=== PATIENT | male | born 1965 | race Caucasian/White ===

== ENCOUNTER 2020-08-23 07:25 | Emergency (ER) | payer SELFPAY ==
[2020-08-23] MEDS ORDERED: Sodium Chloride 0.9% 2.5 ML Syringe FLUSH PRN (07:50)
[2020-08-23] MEDS ORDERED: Lactated Ringers 1,000 ML IV ONE ×2 (07:50→08:22)
[2020-08-23] MEDS ORDERED: Sodium Chloride 0.9% 10 ML Syringe FLUSH PRN (07:50)
[2020-08-23] MEDS ORDERED: Ketorolac 15 MG/ML SDV IVPUSH ONE (07:50)
--- NOTE | 2020-08-23 07:59 | EDM.PDOC ---
ED HPI GENERAL MEDICAL PROBLEM - General Chief Complaint: Abdominal Pain Stated Complaint: RIGHT SIDE PAIN, THINKS APPENDICITIS Time Seen by Provider: 08/23/20 07:50 - History of Present Illness INITIAL COMMENTS - FREE TEXT/NARRATIVE: CHIEF COMPLAINT(S): Abdominal pain HISTORY OF PRESENT ILLNESS: This is a 55-year-old man with a past medical history of prostate cancer in the past status post surgery who comes to the emergency department with a chief complaint of abdominal pain. The patient states that for approximately 1 day now he has been experiencing pain just below his bellybutton which she describes as sharp, 5-8 out of 10, intermittent pain. He denies any radiation of the pain but states that when he has any increased abdominal pressure like when he is trying to have a bowel movement or urinate the pain just below his bellybutton is worse. He denies any nausea or vomiting but states that his stool is soft. He denies any melena, hematochezia, hematemesis or bilious emesis. He states that he tried Tylenol without any relief. States he also has some associated chills but denies any fever, weight loss. Denies any history of aortic aneurysm. States that he is not having trouble urinating or having a bowel movement. He denies any back pain. REVIEW OF SYSTEMS: Constitutional: Positive for chills denies fever Eyes: Denies eye pain Ears, Nose, Mouth, & Throat: Denies earache Cardiovascular: Denies chest pain Respiratory: Denies shortness of breath Gastrointestinal: Positive for lower quadrant abdominal pain and soft stools. Denies melena, hematochezia, hematemesis, bilious emesis, vomiting Genitourinary: Denies hematuria, dysuria Skin:Denies a rash Neurological: Denies blurred vision Psychiatric: Denies depression PAST MEDICAL HISTORY: As per history of present illness and as reviewed below otherwise noncontributory. SURGICAL HISTORY: As per history of present illness and as reviewed below otherwise noncontributory. SOCIAL HISTORY: As per history of present illness and as reviewed below otherwise noncontributory. FAMILY HISTORY: As per history of present illness and as reviewed below otherwise noncontributory. EXAMINATION OF ORGAN SYSTEMS/BODY AREAS: Constitutional: Blood pressure was 164/92, heart rate 112, respiratory rate 16 with an oxygen saturation 95% on room air. Temperature 36.0 General: Overall well-appearing man who is in no acute distress. Psychiatric: Appropriate mood and affect. Eyes: No scleral icterus or conjunctival erythema ENMT: Moist mucous membranes. No pharyngeal erythema Cardiovascular: Regular, rate, and rythym. No gallops, murmurs, or rubs. Bilateral upper extremity pulses symmetric and intact. No peripheral edema. No JVD. Respiratory: Lungs clear to auscultation bilaterally. No wheezes, rales, or rhonchi. Gastrointestinal: Soft, nondistended, moderate tenderness in the right lower quadrant, left lower quadrant, and suprapubic region with guarding. The rest of the abdomen is soft without any guarding. No rebound. Normal bowel sounds. Genitourinary: Suprapubic tenderness with guarding. No CVA tenderness. Musculoskeletal: Normal range of motion. Skin: No lesions or abrasions. Neurological: Alert, GCS 15 MEDICAL DECISION MAKING AND COURSE IN THE ED WITH INTERPRETATION/REVIEW OF DIAGNOSTIC STUDIES: This is a 55-year-old man with a past medical history of prostate cancer who comes to the emergency department with 1 day of intermittent sharp pain in the infraumbilical region and examination revealing guarding and moderate tenderness in the lower quadrants. Patient is tachycardic but otherwise his vitals appear to be normal. We will provide the patient with Toradol for pain relief as the patient states that he does not prefer narcotics. Will obtain labs including CBC, CMP, coags, and urinalysis. Will obtain a CT abdomen pelvis with IV contrast to evaluate for intra-abdominal pathology given his history of prostate cancer, pain on examination. Given his tachycardia we will provide the patient with 1 L of lactated Ringer's bolus. Differential is broad at this time including bowel obstruction, urinary retention, urinary tract infection, appendicitis, diverticulitis. We will also obtain a coronavirus swab. Laboratory: CBC reveals a leukocytosis of 15.37 with neutrophilic predominance. Coags are within normal limits. CMP is unremarkable. Coronavirus is positive. Urinalysis was a clean catch and was negative for leukocyte esterase, negative for nitrites, and negative for blood. Interpretation: negative. The radiological images were viewed by myself along with reading the report from the radiologist. CT abdomen pelvis with contrast reveals acute sigmoid diverticulitis. There is a small amount of free fluid without localized collection. No free intraperitoneal air. The appendix is normal. After imaging I did provide the patient with 2 g of IV ceftriaxone and 500 mg of metronidazole. I did discuss the results with the patient. We did have a discussion about admission versus outpatient management. He elected for outpatient management. Therefore we did provide the patient with ciprofloxacin and Flagyl tablets given that it is Thanksgiving and there is no pharmacies o pen. 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 I did provide detailed instructions on how to take the medication. He was given strict return precautions. I did instruct him that he need to follow-up with general surgery for follow-up and colonoscopy. He was amenable to discharge at this time and had no further questions. In regards to coronavirus I did inform him that he need to self isolate for 10 days and that to return to the emergency department if he had any new or worsening shortness of breath. I instructed him to buy a pulse oximeter and to return if his pulse ox dropped below 90%. DISPOSITION: The patient was discharged home in stable condition. The patient will follow up with general surgery within 1 week CONDITION: Fair PROCEDURES: None FINAL IMPRESSION(S)/DIAGNOSES: 1. Acute sigmoid diverticulitis 2. Acute coronavirus Afshin Chacon M.D. middle abdomen Pain Score (Numeric/FACES): 7 - Related Data Allergies Allergy/AdvReac Type Severity Reaction Status Date / Time No Known Allergies Allergy Verified 11/08/14 16:22 Home Meds: Home Meds Ciprofloxacin [Ciprofloxacin HCl] 500 mg PO BID 9 Days #18 tab 08/23/20 [Rx] metroNIDAZOLE [Flagyl] 500 mg PO Q8H 9 Days #27 tab 08/23/20 [Rx] Past Medical History Oncologic (Cancer) History: Reports: Prostate - Past Surgical History Male Surgical History: Reports: Prostatectomy Social & Family History - Tobacco Use Tobacco Use Status *Q: Never Tobacco User - Recreational Drug Use Recreational Drug Use: No ED ROS GENERAL - Review of Systems Review Of Systems: See Below ED EXAM, GENERAL - Physical Exam Exam: See Below Course - Vital Signs Last Recorded V/S: Last Vital Signs Temp 36.6 C 08/23/20 11:07 Pulse 81 08/23/20 11:07 Resp 17 08/23/20 11:07 BP 134/81 08/23/20 11:07 Pulse Ox 95 08/23/20 11:07 - Orders/Labs/Meds Orders: Active Orders 24 hr Category Date Time Status Saline Lock Insert [OM.PC] Stat Oth 08/23/20 07:50 Ordered Labs: Laboratory Tests 08/23/20 08/23/20 08/23/20 Range/Units 07:59 07:59 07:59 WBC 15.37 H (4.0-11.0) K/uL RBC 5.59 (4.50-5.90) M/uL Hgb 16.2 (13.0-17.0) g/dL Hct 47.9 (38.0-50.0) % MCV 85.7 (80.0-98.0) fL MCH 29.0 (27.0-32.0) pg MCHC 33.8 (31.0-37.0) g/dL RDW Std Deviation 41.4 (28.0-62.0) fl RDW Coeff of [place] 13 (11.0-15.0) % Plt Count 263 (150-400) K/uL MPV 9.60 (7.40-12.00) fL Neut % (Auto) 79.1 (48.0-80.0) % Lymph % (Auto) 13.0 L (16.0-40.0) % [place] % (Auto) 7.5 (0.0-15.0) % Eos % (Auto) 0.3 (0.0-7.0) % Baso % (Auto) 0.1 (0.0-1.5) % Neut # (Auto) 12.2 H (1.4-5.7) K/uL Lymph # (Auto) 2.0 (0.6-2.4) K/uL [place] # (Auto) 1.2 H (0.0-0.8) K/uL Eos # (Auto) 0.0 (0.0-0.7) K/uL Baso # (Auto) 0.0 (0.0-0.1) K/uL Nucleated RBC % 0.0 /100WBC Nucleated RBCs # 0 K/uL INR 1.01 Sodium 138 (136-148) mmol/L Potassium 4.2 (3.5-5.1) mmol/L Chloride 103 (98-107) mmol/L Carbon Dioxide 25.1 (21.0-32.0) mmol/L BUN 15 (7.0-18.0) mg/dL Creatinine 1.3 (0.8-1.3) mg/dL Est Cr Clr Drug Dosing 60.03 mL/min Estimated GFR (MDRD) 57.3 ml/min Glucose 114 H (74-106) mg/dL Calcium 9.0 (8.5-10.1) mg/dL Total Bilirubin 1.0 (0.2-1.0) mg/dL AST 24 (15-37) IU/L ALT 37 (14-63) IU/L Alkaline Phosphatase 73 (46-116) U/L Total Protein 8.0 (6.4-8.2) g/dL Albumin 4.1 (3.4-5.0) g/dL Globulin 3.9 (2.6-4.0) g/dL Albumin/Globulin Ratio 1.1 (0.9-1.6) Urine Color Urine Appearance Urine pH (5.0-8.0) Ur Specific [place] (1.001-1.035) Urine Protein (NEGATIVE) mg/dL Urine Glucose (UA) (NEGATIVE) mg/dL Urine Ketones (NEGATIVE) mg/dL Urine Occult Blood (NEGATIVE) Urine Nitrite (NEGATIVE) Urine Bilirubin (NEGATIVE) Urine Urobilinogen (<2.0) EU/dL Ur Leukocyte Esterase (NEGATIVE) SARS-CoV-2 RNA (KELLEN) (NEGATIVE) 08/23/20 08/23/20 Range/Units 08:00 09:13 WBC (4.0-11.0) K/uL RBC (4.50-5.90) M/uL Hgb (13.0-17.0) g/dL Hct (38.0-50.0) % MCV (80.0-98.0) fL MCH (27.0-32.0) pg MCHC (31.0-37.0) g/dL RDW Std Deviation (28.0-62.0) fl RDW Coeff of [place] (11.0-15.0) % Plt Count (150-400) K/uL MPV (7.40-12.00) fL Neut % (Auto) (48.0-80.0) % Lymph % (Auto) (16.0-40.0) % [place] % (Auto) (0.0-15.0) % Eos % (Auto) (0.0-7.0) % Baso % (Auto) (0.0-1.5) % Neut # (Auto) (1.4-5.7) K/uL Lymph # (Auto) (0.6-2.4) K/uL [place] # (Auto) (0.0-0.8) K/uL Eos # (Auto) (0.0-0.7) K/uL Baso # (Auto) (0.0-0.1) K/uL Nucleated RBC % /100WBC Nucleated RBCs # K/uL INR Sodium (136-148) mmol/L Potassium (3.5-5.1) mmol/L Chloride (98-107) mmol/L Carbon Dioxide (21.0-32.0) mmol/L BUN (7.0-18.0) mg/dL Creatinine (0.8-1.3) mg/dL Est Cr Clr Drug Dosing mL/min Estimated GFR (MDRD) ml/min Glucose (74-106) mg/dL Calcium (8.5-10.1) mg/dL Total Bilirubin (0.2-1.0) mg/dL AST (15-37) IU/L ALT (14-63) IU/L Alkaline Phosphatase (46-116) U/L Total Protein (6.4-8.2) g/dL Albumin (3.4-5.0) g/dL Globulin (2.6-4.0) g/dL Albumin/Globulin Ratio (0.9-1.6) Urine Color YELLOW Urine Appearance CLEAR Urine pH 7.0 (5.0-8.0) Ur Specific [place] 1.020 (1.001-1.035) Urine Protein NEGATIVE (NEGATIVE) mg/dL Urine Glucose (UA) NEGATIVE (NEGATIVE) mg/dL Urine Ketones NEGATIVE (NEGATIVE) mg/dL Urine Occult Blood NEGATIVE (NEGATIVE) Urine Nitrite NEGATIVE (NEGATIVE) Urine Bilirubin NEGATIVE (NEGATIVE) Urine Urobilinogen 0.2 (<2.0) EU/dL Ur Leukocyte Esterase NEGATIVE (NEGATIVE) SARS-CoV-2 RNA (KELLEN) POSITIVE H (NEGATIVE) Meds: Medications Discontinued Medications Generic Name Dose Route Start Last Admin Trade Name Freq PRN Reason Stop Dose Admin Ceftriaxone Sodium 2 gm 08/23/20 09:53 08/23/20 10:20 Rocephin IVPUSH 08/23/20 09:54 Not Given ONETIME ONE Ciprofloxacin 500 mg 08/23/20 09:54 08/23/20 10:05 Ciprofloxacin Hcl PO 08/23/20 09:55 500 mg ONETIME ONE Administration Lactated Ringer's 1,000 mls @ 999 mls/hr 08/23/20 07:50 08/23/20 08:01 Ringers, Lactated IV 08/23/20 08:50 999 mls/hr .BOLUS ONE Administration Lactated Ringer's 1,000 mls @ 999 mls/hr 08/23/20 08:22 08/23/20 09:17 Ringers, Lactated IV 08/23/20 09:22 999 mls/hr .BOLUS ONE Administration Metronidazole 500 mg/ Premix 100 mls @ 100 mls/hr 08/23/20 09:53 08/23/20 10:05 IV 08/23/20 10:52 100 mls/hr ONETIME STA Administration Ceftriaxone Sodium/Dextrose 2 50 mls @ 100 mls/hr 08/23/20 10:04 08/23/20 10:11 gm/ Premix IV 08/23/20 10:33 100 mls/hr ONETIME ONE Administration Iopamidol 100 ml 08/23/20 09:05 08/23/20 09:05 Isovue Multipack-370 (76%) IVPUSH 08/23/20 09:06 100 ml ONETIME ONE Administration Ketorolac Tromethamine 15 mg 08/23/20 07:50 08/23/20 08:01 Toradol IVPUSH 08/23/20 07:51 15 mg ONETIME ONE Administration Metronidazole 500 mg 08/23/20 09:55 08/23/20 10:05 Metronidazole PO 08/23/20 09:56 500 mg ONETIME ONE Administration Metronidazole 500 mg 08/23/20 09:56 08/23/20 10:12 Metronidazole PO 08/23/20 09:57 500 mg ONETIME ONE Administration Sodium Chloride 10 ml 08/23/20 07:50 08/23/20 08:02 Saline Flush FLUSH 10 ml ASDIRECTED PRN Administration Keep Vein Open Sodium Chloride 2.5 ml 08/23/20 07:50 11/26/20 08:02 Saline Flush FLUSH 2.5 ml ASDIRECTED PRN Administration Keep Vein Open Departure - Departure Time of Disposition: 10:51 Disposition: Home, Self-Care 01 Condition: Fair Clinical Impression: Diverticulitis, COVID-19 - Discharge Information *PRESCRIPTION DRUG MONITORING PROGRAM REVIEWED*: No *COPY OF PRESCRIPTION DRUG MONITORING REPORT IN PATIENT VANESSA: No Prescriptions: Ciprofloxacin [Ciprofloxacin HCl] 500 mg PO BID 9 Days #18 tab metroNIDAZOLE [Flagyl] 500 mg PO Q8H 9 Days #27 tab Instructions: COVID-19, Diverticulitis, [id number], COVID-19: How to Protect Yourself and Others - [facility] Referrals: Refugio Celaya MD [Primary Care Provider] - Forms: ED Department Discharge Additional Instructions: The patient is informed of any results of their evaluation and diagnostic workup and all questions are answered. They are given discharge instructions and return precautions. The patient is stable for discharge. The patient states they understand and agree with the plan and that they will return if their symptoms get worse or if they have any new concerns. The following information is given to patients seen in the emergency department who are being discharged to home. This information is to outline your options for follow-up care. We provide all patients seen in our emergency department with a follow-up referral. The need for follow-up, as well as the timing and circumstances, are variable depending upon the specifics of your emergency department visit. If you don't have a primary care physician on staff, we will provide you with a referral. We always advise you to contact your personal physician following an emergency department visit to inform them of the circumstance of the visit and for follow-up with them and/or the need for any referrals to a consulting specialist. The emergency department will also refer you to a specialist when appropriate. This referral assures that you have the opportunity for follow-up care with a specialist. All of these measure are taken in an effort to provide you with optimal care, which includes your follow-up. Under all circumstances we always encourage you to contact your private physician who remains a resource for coordinating your care. When calling for follow-up care, please make the office aware that this follow-up is from your recent emergency room visit. If for any reason you are refused follow-up, please contact the [facility] Emergency Department at and asked to speak to the emergency department charge nurse. Your evaluated today on an emergency basis. You were diagnosed with diverticulitis. Please use the prescription as prescribed and complete all antibiotics. If you were to have any worsening pain, fever you should return to the emergency department. In addition, you were diagnosed with coronavirus. We recommend a 10-day self-isolation. If you have any worsening shortness of breath please return to the emergency department. Please follow-up with general surgery within 1 week. 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 AND TAKE PRESCRIBED [facility] Building [address] [place] [address], [address] [place] [address] Sepsis Event Note (ED) - Evaluation Sepsis Screening Result: No Definite Risk - Focused Exam Vital Signs: Vital Signs Temp Pulse Resp BP Pulse Ox 08/23/20 11:07 36.6 C 81 17 134/81 95 08/23/20 09:37 71 134/82 95 08/23/20 09:21 73 127/81 95 08/23/20 08:37 85 126/80 95 08/23/20 08:06 136/93 H 08/23/20 07:34 36.0 C L 112 H 16 164/92 H 95 - My Orders Last 24 Hours: My Active Orders 08/23/20 07:50 Saline Lock Insert [OM.PC] Stat - Assessment/Plan Last 24 Hours: My Active Orders 08/23/20 07:50 Saline Lock Insert [OM.PC] Stat
[2020-08-23 08:29] LABS: CARBON DIOXIDE,CO2 25.1 mmol/L (21.0-32.0); POTASSIUM,K 4.2 mmol/L (3.5-5.1)
[2020-08-23] MEDS ORDERED: Iopamidol 755 MG/ML 500 ML Multipack Bottle IVPUSH ONE (09:05)
--- NOTE | 2020-08-23 09:43 | CT ---
HISTORY: Lower abdominal pain. Prostate cancer. TECHNIQUE: Intravenous contrast enhanced CT of the abdomen and pelvis. 100 mL of Isovue-370 intravenous contrast administered. COMPARISON: No prior. FINDINGS: There is no focal liver parenchymal abnormality. No biliary ductal dilatation. Gallbladder does not appear excessively distended. Spleen and adrenal glands are normal. No focal pancreatic abnormality. Symmetric nephrograms. No renal mass or hydronephrosis. No obstructive urinary calculus. Urinary bladder does not appear excessively distended. Patient has previously undergone a prostatectomy. - No small bowel obstruction. No appendicitis. Pericolonic inflammatory changes are associated with the sigmoid colon related to acute diverticulitis. There is short segment colonic wall thickening. No free intraperitoneal air. A small amount of free fluid is present. No well-formed fluid collection. - No abdominal aortic aneurysm. Small retroperitoneal lymph nodes are not technically enlarged by imaging criteria. - Small fat containing left and minimal fat containing right inguinal hernias. - No consolidation within the lung bases. No pleural effusion. - Degenerative changes of the spine. IMPRESSION: 1. Acute sigmoid diverticulitis. Given the localized wall thickening of the sigmoid colon in that region, consider direct visualization following the acute period. 2. Small amount of free fluid without localized collection. 3. No free intraperitoneal air. 4. The appendix is normal. 5. Changes of prior prostatectomy. Dictated by Min Dee MD @ 08/23/2020 9:42:00 AM Please note that all CT scans at this facility use dose modulation, iterative reconstruction, and/or weight-based dosing when appropriate to reduce radiation dose to as low as reasonably achievable. Dictated by: Min Dee MD @ 08/23/2020 09:42:07 (Electronically Signed)
[2020-08-23] MEDS ORDERED: metroNIDAZOLE/Normal Saline 500 MG in Premix Bag 1 BAG IV STA (09:53)
[2020-08-23] MEDS ORDERED: cefTRIAXone 1 GM Vial IVPUSH ONE (09:53)
[2020-08-23] MEDS ORDERED: Ciprofloxacin 500 MG Tab PO ONE (09:54)
[2020-08-23] MEDS ORDERED: metroNIDAZOLE 250 MG Tab PO ONE ×2 (09:55→09:56)
[2020-08-23] MEDS ORDERED: cefTRIAXone 2 GM in Premix Bag 1 BAG IV ONE (10:04)
== END 2020-08-23 11:07 | disposition home or self-care (01) ==
LOC: MW.ED 07:25
DX: K57.32 Diverticulitis of large intestine without perforation or abscess without bleeding (principal); U07.1 COVID-19
CPT/HCPCS: 36415; 74177; 80053; 81003; 85025; 85610; 87635; 96365; 96368; 96375; 99284; A9270; J0696; J1885; J3490; J7120; Q9967; 99283; U0002